=== PATIENT | male | born 2000 | race Caucasian/White ===

== ENCOUNTER → 2022-10-26 | Outpatient (CLI) | payer OTHER | LOC: M PLARAD 09:28 | PROVIDERS: ATTEND Physician Assistant | DX: M25.561 Pain in right knee (principal) ==

== ENCOUNTER 2023-07-02 14:20 | Inpatient (IN) | payer OTHER ==
[~2023-07-02] VITALS: Ht 193 cm; Wt 86.0 kg
[2023-07-02 15:55] LABS: HEMATOCRIT 45.9 % (42.0-52.0); HEMOGLOBIN 15.2 g/dl (13.5-17.5); MEAN CORPUSCULAR HEMOGLOBIN 29.1 pg (27.0-33.0); MEAN CORPUSCULAR HGB CONC 33.1 g/dl (32.0-36.5); MEAN CORPUSCULAR VOLUME 87.9 fl (80.0-96.0); PLATELET COUNT, AUTOMATED 236 10^3/uL (150-450); RED BLOOD COUNT 5.22 10^6/uL (4.30-6.10); WHITE BLOOD COUNT 9.2 10^3/uL (4.0-10.0)
[2023-07-02 16:12] LABS: BARBITURATES URINE NEGATIVE (NEGATIVE); CANNABINOIDS URINE NEGATIVE (NEGATIVE); COCAINE METABOLITE URINE NEGATIVE (NEGATIVE); METHADONE URINE NEGATIVE (NEGATIVE); OPIATES URINE NEGATIVE (NEGATIVE); PHENCYCLIDINE URINE NEGATIVE (NEGATIVE)
[2023-07-02 16:13] LABS: AMPHETAMINES LEVEL URINE NEGATIVE (NEGATIVE); BENZODIAZEPINES URINE NEGATIVE (NEGATIVE)
[2023-07-02 16:15] LABS: ETHYL ALCOHOL (ETHANOL) < 0.003 % (0.000-0.010)
[2023-07-02 16:16] LABS: SALICYLATE LEVEL < 3.0 MG/DL (<30)
[2023-07-02 16:17] LABS: ALBUMIN 4.4 G/DL (3.2-5.2); ALKALINE PHOSPHATASE 49 U/L (46-116); ALT/SGPT 11 U/L (7.0-40); AST/SGOT 12 U/L (<34); BILIRUBIN,DIRECT 0.2 MG/DL (<0.4); BILIRUBIN,TOTAL 0.5 MG/DL (0.3-1.2); BLOOD UREA NITROGEN 14 MG/DL (9-23); CALCIUM LEVEL 9.5 MG/DL (8.5-10.1); CARBON DIOXIDE LEVEL 28 MMOL/L (20-31); CHLORIDE LEVEL 109 MMOL/L (98-107); CREATININE FOR GFR 1.21 MG/DL (0.70-1.30); GLOMERULAR FILTRATION RATE > 60.0 (>60); GLUCOSE, FASTING 97 MG/DL (60-100); POTASSIUM SERUM 3.6 MMOL/L (3.5-5.1); SODIUM LEVEL 138 MMOL/L (136-145); TOTAL PROTEIN 6.9 G/DL (5.7-8.2)
[2023-07-02 16:18] LABS: THYROID STIMULATING HORMONE 1.066 uIU/ML (0.55-4.78)
[2023-07-02] MEDS ORDERED: HOME MED LIST COMPLETE! XX SCH (17:15)
[2023-07-03] MEDS ORDERED: OLANZapine ORAL DISINTEGRATING TAB 5MG PO PRN (13:35)
[2023-07-03] MEDS ORDERED: IBUPROFEN 400MG TAB PO PRN (13:35)
[2023-07-03] MEDS ORDERED: MAALOX 30 ML SUSP *UDC PO PRN (13:35)
[2023-07-03] MEDS ORDERED: ACETAMINOPHEN TAB 650MG DOSE (2X325MG) PO PRN (13:35)
[2023-07-03] MEDS ORDERED: diphenhydrAMINE 25MG CAP PO PRN (13:35)
[2023-07-03] MEDS ORDERED: MOM 30ML SUSPENSION UDC PO PRN (13:35)
[2023-07-03 17:51] VITALS: BP 130/70; TEMP 97.7; O2SAT 99
[2023-07-03] MEDS: NICOTINE 14 MG/24 HR TRANSDERMAL TD PRN (21:44)
[2023-07-04] MEDS: predniSONE 20 MG TAB PO SCH (11:44)
[2023-07-04 17:08] VITALS: BP 110/70; TEMP 97.7
[2023-07-04] MEDS: traZODone 50 MG TAB PO PRN (20:16)
[2023-07-05 06:29] VITALS: BP 120/58; TEMP 98.6; O2SAT 98
[2023-07-05 14:49] VITALS: BP 134/80; TEMP 97.4; O2SAT 99
[2023-07-06 06:35] VITALS: BP 116/72; TEMP 97.6; O2SAT 97
[2023-07-06] MEDS ORDERED: PRED20TA PO (09:32)
[2023-07-06] MEDS ORDERED: TRAZ-252 PO (09:32)
== END 2023-07-06 11:33 | disposition home or self-care (01) | DRG 885 ==
LOC: M ED 14:20 → M ED INP 07-03 13:35 → M PSY 07-03 17:44
PROVIDERS: ADMIT Student in an Organized Health Care Education/Training Program; ATTEND Student in an Organized Health Care Education/Training Program
DX: F29 Unspecified psychosis not due to a substance or known physiological condition (principal); R45.851 Suicidal ideations; Z91.013 Allergy to seafood; Z91.018 Allergy to other foods; F17.200 Nicotine dependence, unspecified, uncomplicated; M25.661 Stiffness of right knee, not elsewhere classified

== ENCOUNTER → 2024-02-21 | Outpatient (REF) ==
[~2024-02-21] MED LIST: PRED20TA PO; TRAZ-252 PO
== END ==
LOC: M PLAIMG 11:01
PROVIDERS: ATTEND Internal Medicine
DX: R06.02 Shortness of breath (principal)